=== PATIENT | male | born 1965 | race Caucasian/White ===

== ENCOUNTER 2019-05-29 18:47 | Emergency (ER) | payer BC ==
--- OUTSIDE RECORDS SUMMARY | 2019-05-29 18:49 | XMS REPORT ---
:1965 Author Organization e[employer] Care Team Providers Name Role Phone Laura Moreirah Provider Role Unavailable Allergies, Adverse Reactions, Alerts Substance Reaction Event Type N.K.D.A. Info Not Available Non Drug Allergy Problems Problem Type Condition Code Onset Dates Condition Status Assessment Need for influenza vaccination Z23 Active Assessment Need for Tdap vaccination Z23 Active Problem GERD without esophagitis K21.9 Active Problem Migraine without aura and without G43.009 Active status migrainosus, not intractable Problem Mixed hyperlipidemia E78.2 Active Assessment Encounter for wellness examination Z00.00 Active in adult Problem HTN, goal below 140/90 I10 Active Problem Non-seasonal allergic rhinitis, J30.89 Active unspecified trigger Medications Medication Code Code Instructions Start End Status Dosage System Date Date Omeprazole ND 16966420393 20 MG Orally Active 1 capsule Once a day 30 minutes before morning meal Simvastatin ND 71972744475 20 MG Orally Active 1 tablet Once a day in the evening Celecoxib ND 78436521038 200 MG Orally Active 1 capsule PRN with food Candesartan [facility] [id number] 16 MG Orally Active 1 tablet Cilexetil Once a day Results No Known Results Immunizations Vaccine Administration Date TDAP > 7 Years-Adacel May 16, 2019 Afluria single dose May 16, 2019 Summary Purpose eClinicalWorks Submission
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
[2019-05-29] MEDS ORDERED: IBUPROFEN 400 MG TAB ONE (19:58)
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
[2019-05-29 21:40] VITALS: TEMP 98.1
[2019-05-29 21:41] VITALS: O2SAT 100
[2019-05-29 21:43] VITALS: BP 126/78
== END 2019-05-29 21:22 | disposition home or self-care (01) ==
LOC: ER 18:47
PROC: 0JQ10ZZ Repair Face Subcutaneous Tissue and Fascia, Open Approach (ICD-10-PCS; principal; 2019-05-29)
DX: S01.111A Laceration without foreign body of right eyelid and periocular area, initial encounter (principal); V49.49XA Driver injured in collision with other motor vehicles in traffic accident, initial encounter
CPT/HCPCS: 70450; 70486; 76377; 99284